=== PATIENT | male | born 1995 | race Caucasian/White ===

== ENCOUNTER 2016-05-24 22:17 | Emergency (ER) | payer MEDICAID ==
--- NOTE | ~2016-05-24 | ER ---
PATIENT'S NAME: SHAAN VIEIRA [facility] AGE: 21 Y [address] ROOM: [place] [address] LOCATION: ED ADMIT DATE: 05/24/2016 ER/Outpatient Report DISCHARGE DATE: 05/24/2016 FAMILY PHYSICIAN: Brianda Toscano ATTENDING PHYSICIAN: Khari Lorenz TIME SEEN: 2240 hours. CHIEF COMPLAINT: Rash. HISTORY OF PRESENT ILLNESS: The patient is a 21-year-old male who said earlier today he felt like he got bit on his ankle by a possible insect. The patient said he had a burning sensation and then itching, and he noticed some red raised areas on his left shoulder and right arm. Those also were itchy. The patient did use some topical hydrocortisone without much relief. PAST MEDICAL HISTORY: ALLERGIES: NO MEDICINAL ALLERGIES. CURRENT MEDICATIONS: Include. 1. Levothyroxine. 2. Meloxicam. MEDICAL HISTORY: Hypothyroidism. SURGERIES: Include cleft palate repair. SOCIAL HISTORY: Smoker, pack a day. Alcohol, socially. REVIEW OF SYSTEMS: CONSTITUTIONAL: General health good. HEAD AND EENT: No recent sore throats or nasal congestion. RESPIRATORY: No shortness of breath or cough. GASTROINTESTINAL: No change in bowel habits. SKIN: The development of a rash today, pruritic. Denies being outside. PATIENT'S NAME: SHAAN VIEIRA [facility] AGE: 21 Y [address] ROOM: [place] [id number] LOCATION: [facility] ADMIT DATE: 05/24/2016 ER/Outpatient Report DISCHARGE DATE: 05/24/2016 FAMILY PHYSICIAN: Brianda Toscano ATTENDING PHYSICIAN: Khari Lorenz OBJECTIVE FINDINGS: VITAL SIGNS: Reviewed. He was afebrile. GENERAL APPEARANCE: No obvious distress. HEAD AND EENT: There were no oral lesions. LUNGS: Sounded clear. No wheezes. SKIN: On his right ankle, there was a small 3 x 3 cm annular reddened area. On his left shoulder, there were also 3 the raised red areas, appearance of an insect bite as well as on his right posterior arm. ASSESSMENT: Rash, suspect insect bites. PLAN: Recommend to continue the hydrocortisone cream at least every 2-3 hours; antihistamine, either Benadryl or Claritin. See for followup by primary care if the rash does not improve. CYNTHIA ROACH FOR MD SIMONE MCNEIL/diego /[id number] d: 05/25/162 t: 06/03/16 1242, OUTPATIENT REPORT
[2016-06-28] MEDS ORDERED: LEVOTHROID (SY50 MCG PO (13:24)
[2016-06-28] MEDS ORDERED: MOBIC15 MG PO (13:25)
== END 2016-05-24 22:45 | disposition disaster alternative care site (69) ==
LOC: GMED 22:17
DX: R21 Rash and other nonspecific skin eruption (principal); F17.210 Nicotine dependence, cigarettes, uncomplicated; E03.9 Hypothyroidism, unspecified; Z79.899 Other long term (current) drug therapy; Z98.890 Other specified postprocedural states

== ENCOUNTER 2016-07-04 06:41 | Day surgery (SDC) | payer MEDICAID ==
[~2016-07-04] VITALS: Ht 165.1 cm; Wt 77.1 kg
--- NOTE | ~2016-07-04 | OR ---
PATIENT'S NAME: SHAAN VIEIRA [facility] AGE: 21 Y [address] ROOM: [place] [address] LOCATION: [facility] [place] ADMIT DATE: 07/04/2016 OR/Procedure Report DISCHARGE DATE: FAMILY PHYSICIAN: Brianda Toscano ATTENDING PHYSICIAN: Steven Yarbrough V SURGEON: Steven Yarbrough MD CORRECTIONAL NURSE: Noel Zimmer M.D. DATE OF PROCEDURE: 07/04/2016 PREOPERATIVE DIAGNOSIS: Chronic left otomastoiditis. POSTOPERATIVE DIAGNOSIS: Chronic left otomastoiditis. OPERATIONS/PROCEDURES: Left radical tympanomastoidectomy, tube placement, facial nerve monitor with intraoperative nerve monitoring (2 hours), and canaloplasty. ANESTHESIA: General endotracheal anesthesia. ESTIMATED BLOOD LOSS: Minimal. COMPLICATIONS: None. FINDINGS: The patient had chronic mucosal thickening inflammation within the mastoid completely filling the aditus ad antrum, extending up into the attic as well as the middle ear space. The facial nerve was lateralized posteriorly with high riding facial ridge. DESCRIPTION OF PROCEDURE: The patient was taken to the operating room and laid in a supine position with general endotracheal anesthesia. The table was rotated to 180 degrees. Head was rotated to the right. Left ear was approached. A speculum was placed in the left external auditory canal. Canal was then cleaned with suction. Canal was infiltrated with 1:10,000 epinephrine solution as was the postauricular crease. Facial nerve monitor was then placed within the orbicularis slim and orbicularis oculi muscles. Ground electrodes placed over the left shoulder and anterior chest. These were secured. Impedance interference were noted to be within normal limits. The patient's left ear was then prepped and draped in the usual sterile fashion using Betadine solution. A speculum was placed in the left external auditory canal. Microscope was draped and brought into place. Horizontal canal incision performed at 6 and 12 o'clock respectively. Vertical canal incision performed along the bony annulus, posterior canal skin was then reflected laterally with a tab knife. Left postauricular skin incision was then performed using #15 blade. The subcutaneous tissues divided using Bovie electrocautery. T-shaped periosteal incision performed over the mastoid. PATIENT'S NAME: SHAAN VIEIRA [facility] AGE: 21 Y [address] ROOM: [place], [place] [address] LOCATION: [facility] [place] ADMIT DATE: 07/04/2016 OR/Procedure Report DISCHARGE DATE: FAMILY PHYSICIAN: Brianda Toscano ATTENDING PHYSICIAN: Steven Yarbrough V Periosteum was elevated anteriorly with periosteal elevator down into the external auditory canal. Sandra drain was placed within the external auditory canal and the ear was reflected anteriorly. Weitlaner retractor was placed. Microscope was brought back into position. The fibrous annulus elevated out of its bony counterpart. TM was reflected anteriorly. There was a large anterior and inferior TM perforation. There was a large amount of granulation tissue overlying the TM as well as overlying the promontory. The TM was firmly adherent to the long process of the incus. This was elevated down to the malleus. There was a large amount of granulation tissue between the incus and malleus as well as surrounding the stapes. This was partially debrided and removed. The capitulum of the stapes was then from the long process of the incus with a joint knife. Attention was then turned to the mastoid. Cortical mastoidectomy was then performed using #6 followed by a #5 cutting cody. The tegmen was skeletonized. The sinus tympani was anterior, this was taken down. The mastoid was poorly aerated. The canal was taken down using the cutting cody, this was followed up into the root of the zygoma. The corners of the septum were taken down. The long process of the incus was visualized through the aditus ad antrum. This was taken down. The superior incus bridge was taken down and dissection was carried up into the attic. The tensor tympani tendon was cut with blue cheese scissors. The anterior malleolar ligament was divided. The fiber sinus was elevated, was from its bony annulus anteriorly and then followed inferiorly. The TM and the malleus were all removed in total. Thickened mucosa over the promontory was removed using the cup forceps. This was from the stapes as well as the facial ridge. Facial nerve was noted be intact over the facial ridge, this was followed laterally. The bone was then taken down. Facial ridge was being taken down. There was what appeared to be some mastoid air cell. This was a stimulus probe at 0.5 milliamps. This was then hooked to the facial nerve monitor. This area posterolateral was stimulated with active response indicating a portion of the facial nerve. Some bone anterior to this was taken down exposing the sinus tympani. The facial nerve was noted to be lateralized in the posterior. The tegmen was skeletonized with rambo cody. The ear was again irrigated with copious amounts of saline solution. The temporalis fascia graft was harvested along with some temporalis muscle. The eustachian tube was packed with temporalis muscle occluding the eustachian tube. The temporalis fascia graft was then placed over the promontory extended up over the facial ridge up into the aditus ad antrum in the mastoid cavity. Cortisporin soaked Gelfoam was placed lateral to the graft. Sandra drain was removed. Canaloplasty was performed making incisions at 6 and 12 o'clock respectively and removing a portion of the conchal cartilage. The external canal skin was laid into the mastoid bowl. The subcutaneous tissues were approximated with interrupted 3-0 Vicryl suture. Skin closure performed with a running subcuticular 4-0 Vicryl suture. The postauricular skin flap was then laid into the mastoid bowl. Cortisporin soaked Gelfoam was placed over this. Ear was packed with Bactroban coated Vaseline gauze. Occlusive PATIENT'S NAME: SHAAN VIEIRA [facility] AGE: 21 Y [address] ROOM: [place], [place] [address] LOCATION: [facility] [place] ADMIT DATE: 07/04/2016 OR/Procedure Report DISCHARGE DATE: FAMILY PHYSICIAN: Brianda Toscano ATTENDING PHYSICIAN: Steven Yarbrough V mastoid dressing was placed. Facial nerve electrodes were removed. The patient was aroused, extubated, and discharged from the operating room to recovery room in satisfactory condition with facial nerve intact. MD HEATHER ANTON/diego /[id number] d: 07/04/162112 t: 07/18/16 0709, OPERATIVE SUMMARY
[~2016-07-04 06:41] MED LIST: LEVOTHROID (SY50 MCG PO; MOBIC15 MG PO
--- NOTE | 2016-07-04 11:07 | NUR ---
1103 REPORT RECEIVED FROM oJvanny ALEXANDER RN
[2016-07-04] MEDS ORDERED: TYLENOL WITH C1 EACH PO (12:31)
== END 2016-07-04 12:58 | disposition disaster alternative care site (69) ==
LOC: GSDC 06:41
PROC: 09BC0ZZ Excision of Left Mastoid Sinus, Open Approach (ICD-10-PCS; principal; 2016-07-04)
DX: H70.12 Chronic mastoiditis, left ear (principal); F41.9 Anxiety disorder, unspecified; E03.9 Hypothyroidism, unspecified; F17.210 Nicotine dependence, cigarettes, uncomplicated; Z79.899 Other long term (current) drug therapy; Z98.890 Other specified postprocedural states
CPT/HCPCS: J0171; J1100; J2001; J2250; J2405; J7120